=== PATIENT | male | born 1960 | race Caucasian/White ===

== ENCOUNTER 2016-11-08 08:50 | Inpatient (IN) | payer OTHER ==
[2016-11-08] VITALS (12 sets, daily range): BP systolic 104–171; BP diastolic 63–105
[~2016-11-08] VITALS: Ht 180.3 cm; Wt 104.8 kg
[2016-11-08 09:24] LABS: BASOPHIL COUNT 0.1 K/uL (0-0.1); EOSINOPHIL (%) 2.7 % (0-5); EOSINOPHIL COUNT 0.2 K/uL (0-0.3); HEMATOCRIT 51.2 % (38.0-50.0); IMMATURE GRANULOCYTE (%) 0.5 % (0.0-0.7); INSTRUMENT ABS NEUTROPHIL CT 3.9 K/uL; LYMPHOCYTE COUNT 3.8 K/uL (1.0-2.8); MCH 27.3 PG (29.0-34.0); MCV 82.6 FL (86-99); MEAN PLAT.VOLUME 10.1 uM^3 (9.0-12.4); MONOCYTE (%) 7.6 % (3-12); MONOCYTE COUNT 0.7 K/uL (0-0.8); NEUTROPHIL (%) 44.6 % (45-76); NEUTROPHIL COUNT 3.9 K/uL (1.8-6.4); PLATELET COUNT 250 K/uL (156-360); RBC DIS.WIDTH-CV 13.9 % (11.8-14.6); RBC DIS.WIDTH-SD 41.1 % (39-53); WHITE BLOOD COUNT 8.6 K/uL (4.1-10.2)
[2016-11-08 09:36] LABS: AMYLASE 37 IU/L (1-118); CHLORIDE 101 mEq/L (99-109); POTASSIUM 4.1 mEq/L (3.7-5.4); SODIUM 139 mEq/L (136-147)
[2016-11-08 09:40] LABS: ANION GAP 15 MEQ/L (2-14); GLUCOSE 107 mg/dL (70-99)
[2016-11-08 09:41] LABS: SERUM ETHYL ALCOHOL < 10 mg/dL
[2016-11-08 09:42] LABS: GFR ESTIMATE (CALCULATED) > 59 mL/min/
[2016-11-08 09:45] LABS: TROP-I INTERPRETATION NEGATIVE; TROPONIN-I 0.13 ng/mL (0.0-0.30)
[2016-11-08 09:46] LABS: LIPASE 27 U/L (1.0-51.0); UREA NITROGEN (BUN) 13 mg/dL (9-23)
[2016-11-08 09:47] LABS: PROTHROMBIN TIME 10.4 SEC (10.2-12.9)
[2016-11-08 12:52] LABS: METH RESISTANT S AUREUS PCR NEGATIVE (NEGATIVE)
[2016-11-08 13:07] LABS: HDL CHOLESTEROL 42 MG/DL (Desirable>=40); LDL CHOLESTEROL 185 mg/dL (Desirable<100); NON-HDL CHOLESTEROL 228 mg/dL (Desirable<160); TOTAL CHOLESTEROL 270 mg/dL (Desirable<200); TRIGLYCERIDES 216 MG/DL (Normal: <150)
[2016-11-08 13:09] LABS: Estimated Average Glucose 108 mg/dL (70-123); HEMOGLOBIN A1c (GLYCOHEMOGLOB) 5.4 % HGB (Below 5.7)
[2016-11-08 13:13] LABS: TROP-I INTERPRETATION POSITIVE; TROPONIN-I 14.51 ng/mL (0.0-0.30)
[2016-11-08 13:13] LABS: PROBE CHECK PASS; SPECIMEN PROCESSING CONTROL PASS
[2016-11-08 14:55] LABS: TOTAL CK 1145 IU/L (1-294)
[2016-11-08 15:02] LABS: CREATINE KINASE 1145 IU/L (1-294)
[2016-11-08 15:10] LABS: CK-MB 88.6 ng/mL (0.0-4.9)
[2016-11-08 20:50] LABS: TROP-I INTERPRETATION POSITIVE; TROPONIN-I 74.96 ng/mL (0.0-0.30)
[2016-11-09] VITALS (13 sets, daily range): BP systolic 106–139; BP diastolic 60–93
[2016-11-09 01:14] LABS: CK-MB 89.6 ng/mL (0.0-4.9)
[2016-11-09 01:15] LABS: CREATINE KINASE 1377 IU/L (1-294); TOTAL CK 1377 IU/L (1-294)
[2016-11-09 05:57] LABS: ANION GAP 9 MEQ/L (2-14); CHLORIDE 102 MEQ/L (99-109); GFR ESTIMATE (CALCULATED) > 59 mL/min/; GLUCOSE 103 mg/dL (70-99); POTASSIUM 4.6 MEQ/L (3.7-5.4); SAMPLE HEMOLYSIS CHECK 1; SAMPLE ICTERIC CHECK 0; SAMPLE LIPEMIA CHECK 0; SODIUM 135 MEQ/L (136-147); UREA NITROGEN (BUN) 17 mg/dL (9-23)
[2016-11-09 06:13] LABS: EOSINOPHIL (%) 1.2 % (0-5); EOSINOPHIL COUNT 0.1 K/uL (0-0.3); HEMATOCRIT 44.3 % (38.0-50.0); IMMATURE GRANULOCYTE (%) 0.6 % (0.0-0.7); IMMATURE GRANULOCYTE COUNT 0.1 K/uL; INSTRUMENT ABS NEUTROPHIL CT 6.7 K/uL; LYMPHOCYTE COUNT 1.7 K/uL (1.0-2.8); MCH 26.9 PG (29.0-34.0); MCHC 32.7 G/DL (30.0-36.0); MCV 82.2 FL (86-99); MEAN PLAT.VOLUME 9.8 uM^3 (9.0-12.4); MONOCYTE (%) 9.8 % (3-12); MONOCYTE COUNT 0.9 K/uL (0-0.8); NEUTROPHIL (%) 70.7 % (45-76); NEUTROPHIL COUNT 6.7 K/uL (1.8-6.4); PLATELET COUNT 231 K/uL (156-360); RBC DIS.WIDTH-SD 42.2 % (39-53); RED BLOOD COUNT 5.39 M/uL (4.00-5.50); WHITE BLOOD COUNT 9.5 K/uL (4.1-10.2)
[2016-11-09 09:25] LABS: TROP-I INTERPRETATION POSITIVE
[2016-11-09 09:27] LABS: TROPONIN-I 36.45 ng/mL (0.0-0.30)
[2016-11-09 10:36] LABS: CK-MB 39.2 ng/mL (0.0-4.9)
[2016-11-09 10:48] LABS: CREATINE KINASE 923 IU/L (1-294); TOTAL CK 923 IU/L (1-294)
[2016-11-10] VITALS: BP 95/71
[2016-11-10 04:00] VITALS: BP 105/73
[2016-11-10 08:00] VITALS: BP 115/76
[2016-11-10 10:00] VITALS: BP 107/65
[2016-11-10] MEDS ORDERED: NITROSTAT0.4 MG SL (10:57)
[2016-11-10] MEDS ORDERED: ATORVASTATIN CA80 MG PO (10:57)
[2016-11-10] MEDS ORDERED: LOPRESSOR25 MG PO (10:57)
[2016-11-10] MEDS ORDERED: ASPIR-LOW81 MG PO (10:57)
[2016-11-10] MEDS ORDERED: LISINOPRIL10 MG PO (10:57)
[2016-11-10] MEDS ORDERED: EFFIENT10 MG PO (10:57)
== END 2016-11-10 12:09 | disposition home or self-care (01) | DRG 247 ==
LOC: EME 08:50 → CATH 10:03 → UNDODEPER 10:09 → CANRESERV 11:10 → ENRESERV 11:10 → 4WEST 11:20
PROVIDERS: Emergency Medicine; Internal Medicine Interventional Cardiology
DX: I21.19 ST elevation (STEMI) myocardial infarction involving other coronary artery of inferior wall (principal); E66.9 Obesity, unspecified; I16.9 Hypertensive crisis, unspecified; E78.5 Hyperlipidemia, unspecified; F17.290 Nicotine dependence, other tobacco product, uncomplicated; I25.10 Atherosclerotic heart disease of native coronary artery without angina pectoris; I10 Essential (primary) hypertension; I25.2 Old myocardial infarction; I25.5 Ischemic cardiomyopathy; I34.0 Nonrheumatic mitral (valve) insufficiency; Z82.49 Family history of ischemic heart disease and other diseases of the circulatory system; Z68.32 Body mass index [BMI] 32.0-32.9, adult
CPT/HCPCS: 71010; 80048; 80061; 81003; 82150; 82550; 82550 91; 82553; 83036; 83690; 83880; 84484; 85025; 85027; 85347; 85610; 85730; 86850; 86900; 86901; 87641; 90832; 93005; 93306; 99281; 99285; C1725; C1769; C1874; C1887; G0480; J0153; J0461; J1644; J2250; J2405; J3010; J7050

== ENCOUNTER 2016-11-28 08:48 | Day surgery (SDC) | payer OTHER ==
[~2016-11-28] VITALS: Ht 180.3 cm; Wt 104.3 kg
[~2016-11-28 08:48] MED LIST: ASPIR-LOW81 MG PO; ATORVASTATIN CA80 MG PO; EFFIENT10 MG PO; LISINOPRIL10 MG PO; LOPRESSOR25 MG PO; NITROSTAT0.4 MG SL
[2016-11-28 14:53] VITALS: BP 135/73
[2016-11-28 15:18] VITALS: BP 135/73
[2016-11-28 20:45] VITALS: BP 137/86
[2016-11-28 23:43] VITALS: BP 131/85
[2016-11-29 04:52] VITALS: BP 132/74
[2016-11-29 07:55] VITALS: BP 141/81
[2016-11-29 07:59] LABS: EOSINOPHIL (%) 1.9 % (0-5); EOSINOPHIL COUNT 0.1 K/uL (0-0.3); HEMATOCRIT 46.1 % (38.0-50.0); IMMATURE GRANULOCYTE (%) 0.2 % (0.0-0.7); INSTRUMENT ABS NEUTROPHIL CT 3.7 K/uL; LYMPHOCYTE COUNT 1.6 K/uL (1.0-2.8); MCH 26.8 PG (29.0-34.0); MCHC 32.3 G/DL (30.0-36.0); MCV 82.9 FL (86-99); MEAN PLAT.VOLUME 9.7 uM^3 (9.0-12.4); MONOCYTE (%) 6.8 % (3-12); MONOCYTE COUNT 0.4 K/uL (0-0.8); NEUTROPHIL (%) 62.7 % (45-76); NEUTROPHIL COUNT 3.7 K/uL (1.8-6.4); PLATELET COUNT 222 K/uL (156-360); RBC DIS.WIDTH-CV 13.3 % (11.8-14.6); RBC DIS.WIDTH-SD 40.5 % (39-53); RED BLOOD COUNT 5.56 M/uL (4.00-5.50); WHITE BLOOD COUNT 5.8 K/uL (4.1-10.2)
[2016-11-29 08:25] LABS: TROP-I INTERPRETATION NEGATIVE; TROPONIN-I 0.13 ng/mL (0.0-0.30)
[2016-11-29 08:28] LABS: ANION GAP 6 MEQ/L (2-14); CHLORIDE 106 MEQ/L (99-109); GFR ESTIMATE (CALCULATED) > 59 mL/min/; GLUCOSE 89 mg/dL (70-99); POTASSIUM 3.9 MEQ/L (3.7-5.4); SAMPLE HEMOLYSIS CHECK 0; SAMPLE ICTERIC CHECK 0; SAMPLE LIPEMIA CHECK 0; SODIUM 140 MEQ/L (136-147); UREA NITROGEN (BUN) 10 mg/dL (9-23)
[2016-11-29 11:14] VITALS: BP 125/71
== END 2016-11-29 12:49 | disposition home or self-care (01) ==
LOC: CATH 08:48 → 4EAST 11:50 → ENRESERV 11:54 → ENPENDDIS 11-29 → 4EAST 11-29 12:49
PROVIDERS: Internal Medicine Interventional Cardiology
DX: I25.10 Atherosclerotic heart disease of native coronary artery without angina pectoris (principal); I25.5 Ischemic cardiomyopathy; I34.0 Nonrheumatic mitral (valve) insufficiency; I25.2 Old myocardial infarction; I10 Essential (primary) hypertension; E66.9 Obesity, unspecified; Z68.32 Body mass index [BMI] 32.0-32.9, adult; E78.2 Mixed hyperlipidemia; Z79.82 Long term (current) use of aspirin; Z79.02 Long term (current) use of antithrombotics/antiplatelets
CPT/HCPCS: 80048; 84484; 85025; 93005; C1725; C1769; C1874; C1887; G0378; J1644; J2250; J3010; J7030